=== PATIENT | male | born 1975 | race American Indian/Alaskan Native ===

== ENCOUNTER 2021-02-20 13:12 | Emergency (ER) | payer SELFPAY ==
[2021-02-20 14:01] VITALS: BP 128/66
--- NOTE | 2021-02-20 14:20 | Emergency Department Report ---
Chief Complaint: High BP Stated Complaint: HBP SENT BY PCP Time Seen by Provider: 02/20/21 14:03 - HPI History of Present Illness: 45-year-old male patient with history of hypertension presents to the emergency department for blood pressure recheck. Patient states he was sent to the hospital by his primary care provider. His blood pressure was elevated in the office this morning (he is unsure how high) and he was treated with medication in the office (he is unsure which one) before coming to the emergency department. He took his regular blood pressure medication this morning before his appointment. His blood pressure in the emergency department is 128/66. He has been asymptomatic all day. He has no complaints. - ROS Review of Systems: GENERAL: Negative for fever. CARDIOVASCULAR: Negative for chest pain. PULMONARY: Negative for shortness of breath. GASTROINTESTINAL: Negative for abdominal pain. MUSCULOSKELETAL: Negative for back pain. NEUROLOGICAL: Negative for headache. INTEGUMENTARY: Negative for rash. - Exam Vital Signs: Vital Signs 02/20/21 13:56 Temperature 98.3 F Pulse Rate 81 Respiratory 16 Rate Blood Pressure 128/66 [Right] O2 Sat by Pulse 98 Oximetry Physical Exam: General: Awake and alert. No acute distress. Head: Atraumatic, normocephalic. Eyes: EOMI. Pupils are equal and round. Normal sclera and conjunctiva. ENT: Oral mucosa is moist. Normal pharyngeal exam. Neck: Supple. No lymphadenopathy. Pulmonary: No respiratory distress. Clear to auscultation bilaterally. Cardiac: Regular rate and rhythm. Pulses are palpable and equal bilaterally. No lower extremity cyanosis or edema. Skin: Warm and dry. No rashes. Abdomen: Soft, non-tender, non-protuberant. No guarding, rigidity, or rebound. Bowel sounds are normal. No organomegaly or masses noted. Back: Normal alignment. No CVA tenderness. Extremities: Symmetrical. Full range of motion intact. Neurological: Alert and oriented, appropriately interactive, no focal deficits. Psych: Cooperative. Appropriate mood and affect. Speech is evenly metered. Thoughts are logically construed. MSE screening note: Focused history and physical exam performed. Due to findings the following was ordered: ED Medical Decision Making - Medical Decision Making Patient presents to the emergency department at the instruction of his primary care provider for evaluation of an elevated blood pressure reading in the primary care provider's office earlier today. Patient states he took his blood pressure medicine as usual this morning. He was treated with an oral antihypertensive medication at his primary care provider's office before presenting to the emergency department. Patient has not experienced any symptoms of hypertensive emergency at any point today. He remains asymptomatic in the emergency department. Specifically, patient has not experienced any he adache, shortness of breath, chest pain, palpitations, syncope, paresthesias, or mental status changes. His blood pressure in the emergency department is within normal limits. There is no clinical indication for further diagnostic work-up on an emergent basis at this time per ACEP guidelines regarding asymptomatic hypertension. Patient will be discharged home to continue his previously prescribed blood pressure medications and follow-up with his primary care provider on an outpatient basis. Patient expressed understanding and is agreeable to plan of care. Lifestyle modifications discussed. Strict return precautions provided. ED Disposition for MSE Clinical Impression: History of hypertension Disposition: MED SCREENING EXAM-LEFT Is pt being admited?: No Does the pt Need Aspirin: No Condition: Stable Instructions: Hypertension, Adult, [id number] Additional Instructions: Continue all medications as previously prescribed. Limit your dietary sodium intake. Exercise daily. Follow-up with your primary care provider as previously scheduled. Return to the emergency department immediately for new or worsening symptoms. Referrals: SONDRA MCGHEE MD [Staff Physician] - 3-5 Days Time of Disposition: 14:20
== END 2021-02-20 14:52 | disposition left against medical advice (07) ==
LOC: ED 13:12
DX: I10 Essential (primary) hypertension (principal); Z53.21 Procedure and treatment not carried out due to patient leaving prior to being seen by health care provider